=== PATIENT | male | born 1945 | race Caucasian/White ===

== ENCOUNTER 2017-03-02 18:56 | Emergency (ER) | payer MEDICARE ==
[2017-03-02] MEDS ORDERED: NS 0.9% 1000 ML* 1,000 ML IV ONE (19:44)
[2017-03-02 19:54] LABS: Hematocrit 44 % (42-52); Hemoglobin 14.8 g/dl (14.0-18.0); Mean Corpuscular HGB Conc 34 g/dl (31-36); Mean Corpuscular Hemoglobin 33 pg (27-31); Mean Corpuscular Volume 98 fL (80-94); Mean Platelet Volume 9 um3 (7.4-10.4); Red Blood Count 4.52 10^6/ul (4.0-5.4); Red Cell Distribution Width 12 % (10.5-15); White Blood Count 4.7 10^3/ul (3.5-10.8)
[2017-03-02 20:10] LABS: ALT 21 U/L (7-52); AST 22 U/L (13-39); Albumin 4.4 g/dL (3.2-5.2); Alkaline Phosphatase 88 U/L (34-104); Anion Gap 5 mmol/L (2-11); Blood Urea Nitrogen 20 mg/dL (6-24); C Reactive Protein < 1.00 mg/L (< 5.00); CO2 Carbon Dioxide 30 mmol/L (22-32); Calcium 9.1 mg/dL (8.6-10.3); Chloride 102 mmol/L (101-111); Creatine Kinase 108 U/L (10-223); EGFR African American 128.1 (>60); EGFR Non-African American 99.6 (>60); Globulin 3.2 g/dL (2-4); Glucose 80 mg/dL (70-100); Lipase 20 U/L (11.0-82.0); Magnesium 1.9 mg/dL (1.9-2.7); Potassium 3.8 mmol/L (3.5-5.0); Sodium 137 mmol/L (133-145); Total Protein 7.6 g/dL (6.4-8.9)
[2017-03-02 20:30] LABS: TSH (Thyroid Stimulating Horm) 3.14 mcIU/mL (0.34-5.60)
--- NOTE | 2017-03-02 20:31 | RAD ---
INDICATION: Palpitations. COMPARISON: Comparison is made with a prior chest x-ray study from September 02, 2016. TECHNIQUE: A portable view of the chest was obtained. FINDINGS: Cardiac and mediastinal contours appear to be within normal limits. The lungs are clear. No pleural effusion is seen. IMPRESSION: NO EVIDENCE FOR ACUTE DISEASE.
--- NOTE | 2017-03-02 21:34 | ED ---
Cole Orourke Billy, scribed for Gordo Emmanuel MD on 03/02/17 at 1940 . Palpitations / Dysrhythmia - HPI Summary HPI Summary: Patient is a 71 year-old male with a history of atrial fibrilliation coming to [facility] for evaluation of irregular heart beat at 1700 today. He states that his heart felt "irregular, but not racing." He felt fatigued during that time, but denies SOB. He took metoprolol which improved his symptoms. Patient normally takes 12.5mg metoprolol at night, 25mg during the day. He also takes Eliquis. At this time in the ED, patient states that he feels normal and asymptomatic. - History of Current Complaint Chief Complaint: EDDysrhythmPalp Time Seen by Provider: 03/02/17 19:29 Hx Obtained From: Patient Onset/Duration: Gradual Onset, Lasting Hours, Still Present Timing: Constant Severity Initially: Moderate Severity Currently: Moderate Character: Irregular Aggravating: Nothing Alleviating: Medication - Allergy/Home Medications Allergies/Adverse Reactions: Allergies Allergy/AdvReac Type Severity Reaction Status Date / Time Mepivacaine [From Carbocaine] Allergy Unknown Verified 09/02/16 09:02 Reaction Details Midazolam [From Versed] Allergy See Comment Verified 09/02/16 09:02 Penicillins Allergy Unknown Verified 09/02/16 09:02 Reaction Details PMH/Surg Hx/FS Hx/Imm Hx Endocrine/Hematology History: Denies: Hx Diabetes, Hx Thyroid Disease Cardiovascular History: Reports: Hx Atrial Fibrillation Denies: Hx Hypertension, Other Cardiovascular Problems/Disorders Respiratory History: Denies: Hx Asthma, Hx Chronic Obstructive Pulmonary Disease (COPD) GI History: Reports: Other GI Disorders - IBS Denies: Hx Ulcer Musculoskeletal History: Reports: Hx Arthritis - Surgical History Surgery Procedure, Year, and Place: WISDOM TEETH REMOVAL - Immunization History Date of Tetanus Vaccine: 2012 Date of Influenza Vaccine: None Infectious Disease History: No Infectious Disease History: Denies: Hx Hepatitis, Hx Human Immunodeficiency Virus (HIV), Traveled Outside the US in Last 30 Days - Family History Known Family History: Positive: Other - Sleep apnea - Social History Alcohol Use: None Hx Substance Use: No Substance Use Type: Reports: None Hx Tobacco Use: No Smoking Status (MU): Never Smoked Tobacco Review of Systems Positive: Fatigue Positive: Palpitations Negative: Shortness Of Breath All Other Systems Reviewed And Are Negative: Yes Physical Exam Triage Information Reviewed: Yes Vital Signs On Initial Exam: Initial Vitals Temp Pulse Resp BP Pulse Ox 97.1 F 58 18 131/43 100 03/02/17 19:09 03/02/17 19:09 03/02/17 19:09 03/02/17 19:09 03/02/17 19:09 Vital Signs Reviewed: Yes Appearance: Positive: Well-Appearing, No Pain Distress Skin: Positive: Warm, Skin Color Reflects Adequate Perfusion, Dry Head/Face: Positive: Normal Head/Face Inspection Eyes: Positive: EOMI, SONIA ENT: Positive: Normal ENT inspection Neck: Positive: Supple, Nontender Respiratory/Lung Sounds: Positive: Clear to Auscultation, Breath Sounds Present Cardiovascular: Positive: Bradycardia Abdomen Description: Positive: Nontender, Soft Musculoskeletal: Positive: Normal, Strength/ROM Intact Neurological: Positive: Normal, Sensory/Motor Intact, Alert, Oriented to Person Place, Time Psychiatric: Positive: Affect/Mood Appropriate Diagnostics - Vital Signs Vital Signs Temp Pulse Resp BP Pulse Ox 03/02/17 19:09 97.1 F 58 18 131/43 100 - Laboratory Lab Results: Lab Results 03/02/17 03/02/17 03/02/17 Range/Units 19:35 19:35 19:35 WBC 4.7 (3.5-10.8) 10^3/ul RBC 4.52 (4.0-5.4) 10^6/ul Hgb 14.8 (14.0-18.0) g/dl Hct 44 (42-52) % MCV 98 H (80-94) fL MCH 33 H (27-31) pg MCHC 34 (31-36) g/dl RDW 12 (10.5-15) % Plt Count 196 (150-450) 10^3/ul MPV 9 (7.4-10.4) um3 Neut % (Auto) 53.7 (38-83) % Lymph % (Auto) 36.4 (25-47) % Bailey % (Auto) 6.4 (1-9) % Eos % (Auto) 2.0 (0-6) % Baso % (Auto) 1.5 (0-2) % Absolute Neuts (auto) 2.6 (1.5-7.7) 10^3/ul Absolute Lymphs (auto) 1.7 (1.0-4.8) 10^3/ul Absolute Monos (auto) 0.3 (0-0.8) 10^3/ul Absolute Eos (auto) 0.1 (0-0.6) 10^3/ul Absolute Basos (auto) 0.1 (0-0.2) 10^3/ul Absolute Nucleated RBC 0 10^3/ul Nucleated RBC % 0.1 INR (Anticoag Therapy) 1.04 (0.89-1.11) APTT 32.2 (26.0-36.3) seconds Sodium 137 (133-145) mmol/L Potassium 3.8 (3.5-5.0) mmol/L Chloride 102 (101-111) mmol/L Carbon Dioxide 30 (22-32) mmol/L Anion Gap 5 (2-11) mmol/L BUN 20 (6-24) mg/dL Creatinine 0.77 (0.67-1.17) mg/dL Est GFR ( Amer) 128.1 (>60) Est GFR (Non-Af Amer) 99.6 (>60) BUN/Creatinine Ratio 26.0 H (8-20) Glucose 80 (70-100) mg/dL Lactic Acid (0.5-2.0) mmol/L Calcium 9.1 (8.6-10.3) mg/dL Magnesium 1.9 (1.9-2.7) mg/dL Total Bilirubin 0.40 (0.2-1.0) mg/dL AST 22 (13-39) U/L ALT 21 (7-52) U/L Alkaline Phosphatase 88 (34-104) U/L Total Creatine Kinase 108 (10-223) U/L CK-MB (CK-2) 4.1 (0.6-6.3) ng/mL Troponin I 0.00 (<0.04) ng/mL C-Reactive Protein < 1.00 (< 5.00) mg/L B-Natriuretic Peptide ( - 100) pg/mL Total Protein 7.6 (6.4-8.9) g/dL Albumin 4.4 (3.2-5.2) g/dL Globulin 3.2 (2-4) g/dL Albumin/Globulin Ratio 1.4 (1-3) Lipase 20 (11.0-82.0) U/L TSH 3.14 (0.34-5.60) mcIU/mL 03/02/17 03/02/17 Range/Units 19:35 19:35 WBC (3.5-10.8) 10^3/ul RBC (4.0-5.4) 10^6/ul Hgb (14.0-18.0) g/dl Hct (42-52) % MCV (80-94) fL MCH (27-31) pg MCHC (31-36) g/dl RDW (10.5-15) % Plt Count (150-450) 10^3/ul MPV (7.4-10.4) um3 Neut % (Auto) (38-83) % Lymph % (Auto) (25-47) % Bailey % (Auto) (1-9) % Eos % (Auto) (0-6) % Baso % (Auto) (0-2) % Absolute Neuts (auto) (1.5-7.7) 10^3/ul Absolute Lymphs (auto) (1.0-4.8) 10^3/ul Absolute Monos (auto) (0-0.8) 10^3/ul Absolute Eos (auto) (0-0.6) 10^3/ul Absolute Basos (auto) (0-0.2) 10^3/ul Absolute Nucleated RBC 10^3/ul Nucleated RBC % INR (Anticoag Therapy) (0.89-1.11) APTT (26.0-36.3) seconds Sodium (133-145) mmol/L Potassium (3.5-5.0) mmol/L Chloride (101-111) mmol/L Carbon Dioxide (22-32) mmol/L Anion Gap (2-11) mmol/L BUN (6-24) mg/dL Creatinine (0.67-1.17) mg/dL Est GFR ( Amer) (>60) Est GFR (Non-Af Amer) (>60) BUN/Creatinine Ratio (8-20) Glucose (70-100) mg/dL Lactic Acid 1.2 (0.5-2.0) mmol/L Calcium (8.6-10.3) mg/dL Magnesium (1.9-2.7) mg/dL Total Bilirubin (0.2-1.0) mg/dL AST (13-39) U/L ALT (7-52) U/L Alkaline Phosphatase (34-104) U/L Total Creatine Kinase (10-223) U/L CK-MB (CK-2) (0.6-6.3) ng/mL Troponin I (<0.04) ng/mL C-Reactive Protein (< 5.00) mg/L B-Natriuretic Peptide 143 H ( - 100) pg/mL Total Protein (6.4-8.9) g/dL Albumin (3.2-5.2) g/dL Globulin (2-4) g/dL Albumin/Globulin Ratio (1-3) Lipase (11.0-82.0) U/L TSH (0.34-5.60) mcIU/mL Result Diagrams: 03/02/17 19:35 03/02/17 19:35 Lab Statement: Any lab studies that have been ordered have been reviewed, and results considered in the medical decision making process. - Radiology CXR Xray Interpretation: No Acute Changes Radiology Interpretation Completed By: Radiologist - EKG 192 EKG Interpretation: sinus bradycardia 53 bpm, normal ST segment, no ectopy Course/Dx - Course Course Of Treatment: NO CRITICAL CARE TIME Assessment/Plan: WELL IN ED. NO ARRYTHMIAS SEEN. DISCUSSED RESULTS WITH PATIENT/ . DISCHARGE HOME STABLE. - Diagnoses Provider Diagnoses: Palpitation Discharge - Discharge Plan Condition: Stable Disposition: HOME Patient Education Materials: Palpitations (ED) Referrals: Ritchie Arshad MD [Primary Care Provider] - Additional Instructions: FOLLOW UP WITH YOUR TENNIS INSTRUCTOR. RETURN TO THE EMERGENCY DEPARTMENT FOR ANY WORSENING OF YOUR CONDITION; CHEST PAIN, SHORTNESS OF BREATH, YOU FEEL ILL OR QUESTIONS OR CONCERNS. The documentation as recorded by the Cole cantu Billy accurately reflects the service I personally performed and the decisions made by me, Gordo Emmanuel MD.
[2017-03-02 21:35] VITALS: BP 97/49
== END 2017-03-02 21:34 | disposition home or self-care (01) ==
LOC: ED 18:56
DX: R00.2 Palpitations (principal); I48.91 Unspecified atrial fibrillation; Z79.01 Long term (current) use of anticoagulants; Z88.0 Allergy status to penicillin; R53.83 Other fatigue
CPT/HCPCS: 36415; 71010; 80053; 82550; 82553; 83605; 83690; 83735; 83880; 84443; 84484; 85025; 85610; 85730; 86140; 93005; 96360; 99283

== ENCOUNTER 2017-04-09 00:34 | Emergency (ER) | payer MEDICARE ==
[2017-04-09 01:34] LABS: Hematocrit 40 % (42-52); Hemoglobin 13.4 g/dl (14.0-18.0); Mean Corpuscular HGB Conc 34 g/dl (31-36); Mean Corpuscular Hemoglobin 33 pg (27-31); Mean Corpuscular Volume 96 fL (80-94); Mean Platelet Volume 9 um3 (7.4-10.4); Red Cell Distribution Width 12 % (10.5-15); White Blood Count 5.3 10^3/ul (3.5-10.8)
[2017-04-09 01:45] LABS: Albumin 3.6 g/dL (3.2-5.2); Calcium 8.8 mg/dL (8.6-10.3); EGFR African American 140.7 (>60); EGFR Non-African American 109.4 (>60); Globulin 2.7 g/dL (2-4); Magnesium 1.8 mg/dL (1.9-2.7); Potassium 3.8 mmol/L (3.5-5.0); Total Bilirubin 0.3 mg/dL (0.2-1.0); Total Protein 6.3 g/dL (6.4-8.9)
[2017-04-09 01:55] LABS: TSH (Thyroid Stimulating Horm) 3.81 mcIU/mL (0.34-5.60)
--- NOTE | 2017-04-09 02:44 | ED ---
Matty Orourke Matthew, scribed for Margarito Harkins MD on 04/09/17 at 0056 . Palpitations / Dysrhythmia - HPI Summary HPI Summary: A 71 y/o male with a Hx of AFib presents to the ED with intermittent palpitations since tonight. The patient last had an episode of AFib a month ago and came to [facility] at that time. Currently, the patient is feeling fatigued. 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 - History of Current Complaint Chief Complaint: EDDysrhythmPalp Time Seen by Provider: 04/09/17 00:44 Hx Obtained From: Patient Onset/Duration: Sudden Onset, Lasting Hours, Still Present Timing: Intermittent Episodes Lasting: Severity Initially: Mild Severity Currently: Mild Character: Irregular Aggravating: Nothing Alleviating: Nothing - Allergy/Home Medications Allergies/Adverse Reactions: Allergies Allergy/AdvReac Type Severity Reaction Status Date / Time Mepivacaine [From Carbocaine] Allergy Unknown Verified 09/02/16 09:02 Reaction Details Midazolam [From Versed] Allergy See Comment Verified 09/02/16 09:02 Penicillins Allergy Unknown Verified 09/02/16 09:02 Reaction Details PMH/Surg Hx/FS Hx/Imm Hx Endocrine/Hematology History: Denies: Hx Diabetes, Hx Thyroid Disease Cardiovascular History: Reports: Hx Atrial Fibrillation Denies: Hx Hypertension, Other Cardiovascular Problems/Disorders Respiratory History: Denies: Hx Asthma, Hx Chronic Obstructive Pulmonary Disease (COPD) GI History: Reports: Other GI Disorders - IBS Denies: Hx Ulcer Musculoskeletal History: Reports: Hx Arthritis - Surgical History Surgery Procedure, Year, and Place: WISDOM TEETH REMOVAL - Immunization History Date of Tetanus Vaccine: 2012 Date of Influenza Vaccine: None Infectious Disease History: Denies: Hx Hepatitis, Hx Human Immunodeficiency Virus (HIV), Traveled Outside the [place] in Last 30 Days - Family History Known Family History: Positive: Other - Sleep apnea - Social History Alcohol Use: None Hx Substance Use: No Substance Use Type: Reports: None Hx Tobacco Use: No Smoking Status (MU): Never Smoked Tobacco Review of Systems Positive: Fatigue Eyes: Negative Positive: Epistaxis Positive: Palpitations Respiratory: Negative Gastrointestinal: Negative Genitourinary: Negative Musculoskeletal: Negative Skin: Negative Neurological: Negative Psychological: Normal All Other Systems Reviewed And Are Negative: Yes Physical Exam Triage Information Reviewed: Yes Vital Signs On Initial Exam: Initial Vitals Temp Pulse Resp BP Pulse Ox 97.7 F 95 16 146/80 100 04/09/17 00:35 04/09/17 00:35 04/09/17 00:35 04/09/17 00:35 04/09/17 00:35 Vital Signs Reviewed: Yes Appearance: Positive: Well-Appearing, No Pain Distress - anxious Skin: Positive: Skin Color Reflects Adequate Perfusion Head/Face: Positive: Normal Head/Face Inspection Eyes: Positive: SONIA ENT: Positive: Hearing grossly normal Neck: Positive: Supple Respiratory/Lung Sounds: Positive: Breath Sounds Present Cardiovascular: Positive: IRR Abdomen Description: Positive: Nontender, No Organomegaly, Soft Bowel Sounds: Positive: Present Musculoskeletal: Positive: Strength/ROM Intact Neurological: Positive: Alert, Oriented to Person Place, Time Psychiatric: Positive: Affect/Mood Appropriate Diagnostics - Vital Signs Vital Signs Temp Pulse Resp BP Pulse Ox 04/09/17 00:35 97.7 F 95 16 146/80 100 - Laboratory Lab Results: Lab Results 04/09/17 04/09/17 04/09/17 Range/Units 01:10 01:10 01:10 WBC 5.3 (3.5-10.8) 10^3/ul RBC 4.10 (4.0-5.4) 10^6/ul Hgb 13.4 L (14.0-18.0) g/dl Hct 40 L (42-52) % MCV 96 H (80-94) fL MCH 33 H (27-31) pg MCHC 34 (31-36) g/dl RDW 12 (10.5-15) % Plt Count 171 (150-450) 10^3/ul MPV 9 (7.4-10.4) um3 Neut % (Auto) 59.4 (38-83) % Lymph % (Auto) 29.5 (25-47) % [place] % (Auto) 7.5 (1-9) % Eos % (Auto) 2.8 (0-6) % Baso % (Auto) 0.8 (0-2) % Absolute Neuts (auto) 3.2 (1.5-7.7) 10^3/ul Absolute Lymphs (auto) 1.6 (1.0-4.8) 10^3/ul Absolute Monos (auto) 0.4 (0-0.8) 10^3/ul Absolute Eos (auto) 0.1 (0-0.6) 10^3/ul Absolute Basos (auto) 0 (0-0.2) 10^3/ul Absolute Nucleated RBC 0 10^3/ul Nucleated RBC % 0.1 INR (Anticoag Therapy) 1.10 (0.89-1.11) Sodium 138 (133-145) mmol/L Potassium 3.8 (3.5-5.0) mmol/L Chloride 107 (101-111) mmol/L Carbon Dioxide 29 (22-32) mmol/L Anion Gap 2 (2-11) mmol/L BUN 27 H (6-24) mg/dL Creatinine 0.71 (0.67-1.17) mg/dL Est GFR ( Amer) 140.7 (>60) Est GFR (Non-Af Amer) 109.4 (>60) BUN/Creatinine Ratio 38.0 H (8-20) Glucose 82 (70-100) mg/dL Lactic Acid (0.5-2.0) mmol/L Calcium 8.8 (8.6-10.3) mg/dL Magnesium 1.8 L (1.9-2.7) mg/dL Total Bilirubin 0.30 (0.2-1.0) mg/dL AST 18 (13-39) U/L ALT 20 (7-52) U/L Alkaline Phosphatase 85 (34-104) U/L Troponin I 0.00 (<0.04) ng/mL Total Protein 6.3 L (6.4-8.9) g/dL Albumin 3.6 (3.2-5.2) g/dL Globulin 2.7 (2-4) g/dL Albumin/Globulin Ratio 1.3 (1-3) TSH 3.81 (0.34-5.60) mcIU/mL 04/09/17 Range/Units 01:10 WBC (3.5-10.8) 10^3/ul RBC (4.0-5.4) 10^6/ul Hgb (14.0-18.0) g/dl Hct (42-52) % MCV (80-94) fL MCH (27-31) pg MCHC (31-36) g/dl RDW (10.5-15) % Plt Count (150-450) 10^3/ul MPV (7.4-10.4) um3 Neut % (Auto) (38-83) % Lymph % (Auto) (25-47) % [place] % (Auto) (1-9) % Eos % (Auto) (0-6) % Baso % (Auto) (0-2) % Absolute Neuts (auto) (1.5-7.7) 10^3/ul Absolute Lymphs (auto) (1.0-4.8) 10^3/ul Absolute Monos (auto) (0-0.8) 10^3/ul Absolute Eos (auto) (0-0.6) 10^3/ul Absolute Basos (auto) (0-0.2) 10^3/ul Absolute Nucleated RBC 10^3/ul Nucleated RBC % INR (Anticoag Therapy) (0.89-1.11) Sodium (133-145) mmol/L Potassium (3.5-5.0) mmol/L Chloride (101-111) mmol/L Carbon Dioxide (22-32) mmol/L Anion Gap (2-11) mmol/L BUN (6-24) mg/dL Creatinine (0.67-1.17) mg/dL Est GFR ( Amer) (>60) Est GFR (Non-Af Amer) (>60) BUN/Creatinine Ratio (8-20) Glucose (70-100) mg/dL Lactic Acid 1.2 (0.5-2.0) mmol/L Calcium (8.6-10.3) mg/dL Magnesium (1.9-2.7) mg/dL Total Bilirubin (0.2-1.0) mg/dL AST (13-39) U/L ALT (7-52) U/L Alkaline Phosphatase (34-104) U/L Troponin I (<0.04) ng/mL Total Protein (6.4-8.9) g/dL Albumin (3.2-5.2) g/dL Globulin (2-4) g/dL Albumin/Globulin Ratio (1-3) TSH (0.34-5.60) mcIU/mL Result Diagrams: 04/09/17 01:10 04/09/17 01:10 Lab Statement: Any lab studies that have been ordered have been reviewed, and results considered in the medical decision making process. - EKG 00:41 Cardiac Rate: NL - 92 bpm EKG Rhythm: Atrial Fibrillation 02:47 Cardiac Rate: Bradycardia - 50 bpm EKG Rhythm: Sinus Bradycardia Re-Evaluation - Re-Evaluation First Eval Comment: pt spontaneously cinverted to nsr, on anticoagulants, will d/c f/u pcp Course/Dx - Course Assessment/Plan: A 71 y/o male with a Hx of AFib presents to the ED with intermittent palpitations since tonight. The patient last had an episode of AFib a month ago and came to [facility] at that time. Currently, the patient is feeling fatigued. He sees Dr. Verma. Labs were reviewed. The first EKG showed Afib at 92bpm and the second EKG shows sinus bradycardia at 50 bpm. The patient did well in the ED and will be discharged home with PCP follow-up. - Diagnoses Provider Diagnoses: Paroxysmal atrial fibrillation Discharge - Discharge Plan Condition: Stable Disposition: HOME Patient Education Materials: Palpitations (ED) Referrals: Ritchie Arhsad MD [Primary Care Provider] - 2 Days Additional Instructions: Please follow-up with your primary care physician in 2 days. The documentation as recorded by the Matty cantu Matthew accurately reflects the service I personally performed and the decisions made by me, Margarito Harkins MD.
[2017-04-09 03:09] VITALS: BP 94/56
== END 2017-04-09 03:10 | disposition home or self-care (01) ==
LOC: ED 00:34
DX: I48.91 Unspecified atrial fibrillation (principal); Z88.0 Allergy status to penicillin
CPT/HCPCS: 36415; 80053; 83605; 83735; 84443; 84484; 85025; 85610; 93005; 99282

== ENCOUNTER 2017-06-02 12:02 | Emergency (ER) | payer MEDICARE ==
[2017-06-02] MEDS ORDERED: Aspirin Low Dose CHEW TAB* 81 MG PO ONE (12:29)
--- NOTE | 2017-06-02 12:58 | RAD ---
INDICATION: Weakness COMPARISON: March 02, 2017 TECHNIQUE: An AP portable view obtained at 1242 hours is submitted. FINDINGS: Bones/Soft Tissues: There are no acute bony findings. Cardiomediastinal: The cardiomediastinal silhouette is normal. Lungs: There are no infiltrates. Pleura: There are no pleural effusions. Other: None IMPRESSION: HYPERINFLATION. NO ACTIVE DISEASE
[2017-06-02 13:07] LABS: Hematocrit 40 % (42-52); Hemoglobin 13.6 g/dl (14.0-18.0); Mean Corpuscular HGB Conc 34 g/dl (31-36); Mean Corpuscular Hemoglobin 34 pg (27-31); Mean Corpuscular Volume 100 fL (80-94); Mean Platelet Volume 9 um3 (7.4-10.4); Red Blood Count 4.04 10^6/ul (4.0-5.4); Red Cell Distribution Width 13 % (10.5-15); White Blood Count 4.2 10^3/ul (3.5-10.8)
[2017-06-02 13:23] LABS: Albumin 3.8 g/dL (3.2-5.2); BUN/Creatinine Ratio 24.7 (8-20); Calcium 8.7 mg/dL (8.6-10.3); EGFR African American 120.8 (>60); EGFR Non-African American 93.9 (>60); Potassium 4.1 mmol/L (3.5-5.0); Total Bilirubin 0.5 mg/dL (0.2-1.0); Total Protein 6.8 g/dL (6.4-8.9)
[2017-06-02] MEDS ORDERED: NS 0.9% 1000 ML* 1,000 ML IV ONE (13:27)
[2017-06-02 13:45] LABS: T4 7.34 mcg/mL (6.09-12.23)
[2017-06-02 13:46] LABS: TSH (Thyroid Stimulating Horm) 1.54 mcIU/mL (0.34-5.60)
[2017-06-02 13:50] LABS: C Reactive Protein 2.21 mg/L (< 5.00)
[2017-06-02 15:05] VITALS: BP 102/59
--- NOTE | 2017-06-02 15:07 | ED ---
Justin Orourke Alfonso, scribed for Pawan Reinoso MD on 06/02/17 at 1322 . Shortness of Breath - HPI Summary HPI Summary: This patient is a 71 year old male presenting to [facility] for SOB at 0500 this morning. These symptoms lasted for approximately 2 hours. He reports "I dont know how to characterize it but this feels a little different from baseline. He rates the pain the pain 0/10 in severity. Symptoms aggravated by exertion and alleviated by nothing. He reports weakness, being tired, belching, abd pain , and arthralgia. He denies CP, chest discomfort, palpations, fever, chills, diaphoresis, N/V, diarrhea, melena, cough, rash, urinary symptoms, headaches, and dizziness. He denies recent illness. He denies recent changes in doses of medication. Pt states he is taking Eliquis. Pt is a former smoker. He denies PMHx of diabetes mellitus, and HTN. PMHx of A-Fib. - History of Current Complaint Chief Complaint: EDChestPainROMI Time Seen by Provider: 06/02/17 12:29 Hx Obtained From: Patient, Family/Machine Bander And Cellophaner Helper - Onset/Duration: Sudden Onset, Lasting Hours - 2 hours, Resolved Timing: Constant Current Severity: Mild Aggrevating Factors: Movement - Exertion Alleviating Factors: Nothing - Allergy/Home Medications Allergies/Adverse Reactions: Allergies Allergy/AdvReac Type Severity Reaction Status Date / Time Mepivacaine [From Carbocaine] Allergy Unknown Verified 09/02/16 09:02 Reaction Details Midazolam [From Versed] Allergy See Comment Verified 09/02/16 09:02 Penicillins Allergy Unknown Verified 09/02/16 09:02 Reaction Details PMH/Surg Hx/FS Hx/Imm Hx Endocrine/Hematology History: Denies: Hx Diabetes, Hx Thyroid Disease Cardiovascular History: Reports: Hx Atrial Fibrillation Denies: Hx Hypertension, Other Cardiovascular Problems/Disorders Respiratory History: Denies: Hx Asthma, Hx Chronic Obstructive Pulmonary Disease (COPD) GI History: Reports: Other GI Disorders - IBS Denies: Hx Ulcer Musculoskeletal History: Reports: Hx Arthritis - Surgical History Surgery Procedure, Year, and Place: WISDOM TEETH REMOVAL - Immunization History Date of Tetanus Vaccine: 2012 Date of Influenza Vaccine: None Infectious Disease History: No Infectious Disease History: Denies: Hx Hepatitis, Hx Human Immunodeficiency Virus (HIV), Traveled Outside the [place] in Last 30 Days - Family History Known Family History: Positive: Other - Sleep apnea - Social History Alcohol Use: Rare Hx Substance Use: No Substance Use Type: Reports: None Hx Tobacco Use: No Smoking Status (MU): Former Smoker Review of Systems Negative: Fever, Chills, Skin Diaphoresis Positive: Other - Negative chest discomfort. Negative: Palpitations, Chest Pain Positive: Shortness Of Breath. Negative: Cough Positive: Abdominal Pain, Other - Positive belching; negative melena, . Negative: Vomiting, Diarrhea, Nausea Positive: no symptoms reported Positive: Arthralgia Negative: Rash Neurological: Other - Positive tired, negative dizziness Positive: Weakness. Negative: Headache All Other Systems Reviewed And Are Negative: Yes Physical Exam - Summary Physical Exam Summary: The patient is well-nourished in no acute distress and in no acute pain. The skin is warm and dry and skin color reflects adequate perfusion. HEENT: The head is normocephalic and atraumatic. The pupils are equal and reactive. The conjunctivae are clear and without drainage. Nares are patent and without drainage. Mouth reveals moist mucous membranes and the throat is without erythema and exudate. The external ears are intact. Neck is supple with full range of motion and non-tender. There are no carotid bruits. There is no neck vein distension. Respiratory: Chest is non-tender. Lungs are clear to auscultation and breath sounds are symmetrical and equal. Cardiovascular: Heart is bradycardic. There is no murmur or rub auscultated. There is no peripheral edema and pulses are symmetrical and equal. No carotid bruit appreciated. Abdomen: The abdomen is soft and non-tender. There are normal bowel sounds heard in all four quadrants and there is no organomegaly palpated. No reproducible pain. Musculoskeletal: There is no back pain noted. Extremities are non-tender with full range of motion. There is good capillary refill. There is no peripheral edema or calf tenderness elicited. Neurological: Patient is alert and oriented to person, place and time. The patient has symmetrical motor strength in all four extremities. Cranial nerves are grossly intact. Deep tendon reflexes are symmetrical and equal in all four extremities. Psychiatric: The patient has a flat affect and does not exhibit any anxiety or depression. Triage Information Reviewed: Yes Vital Signs On Initial Exam: Initial Vitals Temp Pulse Resp BP Pulse Ox 97.8 F 47 16 112/68 100 06/02/17 12:03 06/02/17 12:03 06/02/17 12:03 06/02/17 12:03 06/02/17 12:03 Vital Signs Reviewed: Yes - Lino Coma Scale Coma Scale Total: 15 Diagnostics - Vital Signs Vital Signs Temp Pulse Resp BP Pulse Ox 06/02/17 13:00 48 12 106/56 100 06/02/17 12:50 48 97 06/02/17 12:48 109/65 06/02/17 12:03 97.8 F 47 16 112/68 100 - Laboratory Lab Results: Lab Results 06/02/17 06/02/17 Range/Units 12:55 12:55 WBC 4.2 (3.5-10.8) 10^3/ul RBC 4.04 (4.0-5.4) 10^6/ul Hgb 13.6 L (14.0-18.0) g/dl Hct 40 L (42-52) % MCV 100 H (80-94) fL MCH 34 H (27-31) pg MCHC 34 (31-36) g/dl RDW 13 (10.5-15) % Plt Count 175 (150-450) 10^3/ul MPV 9 (7.4-10.4) um3 Neut % (Auto) 65.4 (38-83) % Lymph % (Auto) 22.7 L (25-47) % [place] % (Auto) 9.6 H (1-9) % Eos % (Auto) 1.5 (0-6) % Baso % (Auto) 0.8 (0-2) % Absolute Neuts (auto) 2.7 (1.5-7.7) 10^3/ul Absolute Lymphs (auto) 1.0 (1.0-4.8) 10^3/ul Absolute Monos (auto) 0.4 (0-0.8) 10^3/ul Absolute Eos (auto) 0.1 (0-0.6) 10^3/ul Absolute Basos (auto) 0 (0-0.2) 10^3/ul Absolute Nucleated RBC 0 10^3/ul Nucleated RBC % 0.1 Lactic Acid 0.9 (0.5-2.0) mmol/L Result Diagrams: 06/02/17 12:55 06/02/17 12:55 Lab Statement: Any lab studies that have been ordered have been reviewed, and results considered in the medical decision making process. - Radiology CXR Radiology Interpretation Completed By: Radiologist - HYPERINFLATION. NO ACTIVE DISEASE - EKG 1222 Cardiac Rate: Bradycardia - BPM 47 EKG Rhythm: Sinus Bradycardia EKG Interpretation: Poor R wave progression. Nml axis. Possible old anteroseptal CA. No STEMI Re-Evaluation - Re-Evaluation Second Eval Re-Evaluation Time: 14:50 Comment: Discussed lab results with patient. Discussed discharge and they are agreeable with this plan. Course/Dx - Course Assessment/Plan: A 71 year-old M presents to the ED with a CC of SOB at 0500. He reports weakness, being tired, belching, abd pain, and arthralgia. He denies CP, chest discomfort, palpations, fever, chills, diaphoresis, N/V, diarrhea, melena, cough, rash, urinary symptoms, headaches, and dizziness. A CXR reveals no active disease. An EKG reveals Sinus Bradycardia. A Lyme titer was drawn. Patient will be discharged with follow up from Dr. Arshad. Pt is agreeable with this plan. - Diagnoses Differential Diagnosis/HQI/PQRI: Positive: CHF, CA, Pneumonia, Other - dehydration, anemia, lyme's disease, chest pain, metabolic abnormality, cardiac dysrhythmia Provider Diagnoses: weakness, Bradycardia Discharge - Discharge Plan Condition: Stable Disposition: HOME Patient Education Materials: Weakness (ED), Bradycardia (ED) Referrals: Ritchie Arshad MD [Primary Care Provider] - 1 Week The documentation as recorded by the Justin cantu Alfonso accurately reflects the service I personally performed and the decisions made by , Pawan Reinoso MD.
== END 2017-06-02 15:15 | disposition home or self-care (01) ==
LOC: ED 12:02
DX: R53.1 Weakness (principal); R00.1 Bradycardia, unspecified; I48.91 Unspecified atrial fibrillation; Z87.891 Personal history of nicotine dependence; Z88.0 Allergy status to penicillin
CPT/HCPCS: 36415; 71010; 80053; 82150; 83605; 83690; 83880; 84436; 84443; 84484; 85025; 85610; 85730; 86140; 86618; 93005; 99283; A9270-GY

== ENCOUNTER 2019-03-03 19:38 | Emergency (ER) | payer MEDICARE ==
[2019-03-03] MEDS ORDERED: NS 0.9% 1000 ML** 1,000 ML IV ONE (20:07)
--- NOTE | 2019-03-03 20:10 | ED ---
Palpitations / Dysrhythmia - HPI Summary HPI Summary: This patient is a 73 year old M presenting to ED with a chief complaint of irregular HR since about 1-1.5 hour ago. Patient was sitting during onset. The patient rates the pain 0/10 in severity. Symptoms aggravated by nothing. Symptoms alleviated by nothing. Patient denies CP. He has had 3-4 similar episodes to this about 1 year ago. Patient is on blood thinners and took Atenolol 25 mg PO earlier today. 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 Doesnt remember when his last echo was. - History of Current Complaint Chief Complaint: EDDysrhythmPalp Time Seen by Provider: 03/03/19 19:52 Hx Obtained From: Patient, Family/Bobbin Handler Onset/Duration: Sudden Onset, Lasting Hours, Still Present Timing: Constant Severity Currently: None Character: Irregular Aggravating: Nothing Alleviating: Nothing - Allergy/Home Medications Allergies/Adverse Reactions: Allergies Allergy/AdvReac Type Severity Reaction Status Date / Time MS Mepivacaine Allergy Unknown Verified 03/03/19 19:47 [From Carbocaine] Reaction Details MS Midazolam [From Versed] Allergy See Comment Verified 03/03/19 19:47 MS Penicillins [Penicillins] Allergy Unknown Verified 03/03/19 19:47 Reaction Details PMH/Surg Hx/FS Hx/Imm Hx Endocrine/Hematology History: Denies: Hx Diabetes, Hx Thyroid Disease Cardiovascular History: Reports: Hx Atrial Fibrillation Denies: Hx Hypertension, Other Cardiovascular Problems/Disorders Respiratory History: Denies: Hx Asthma, Hx Chronic Obstructive Pulmonary Disease (COPD) GI History: Reports: Other GI Disorders - IBS Denies: Hx Ulcer Musculoskeletal History: Reports: Hx Arthritis - Surgical History Surgery Procedure, Year, and Place: WISDOM TEETH REMOVAL - Immunization History Date of Tetanus Vaccine: 2012 Date of Influenza Vaccine: None Infectious Disease History: No Infectious Disease History: Denies: Hx Hepatitis, Hx Human Immunodeficiency Virus (HIV), Traveled Outside the [place] in Last 30 Days - Family History Known Family History: Positive: Other - Sleep apnea - Social History Alcohol Use: Rare Hx Substance Use: No Substance Use Type: Reports: None Hx Tobacco Use: No Smoking Status (MU): Former Smoker Review of Systems Negative: Fever Positive: Palpitations - irregular. Negative: Chest Pain All Other Systems Reviewed And Are Negative: Yes Physical Exam - Summary Physical Exam Summary: VITAL SIGNS: Reviewed. GENERAL: Patient is a well-developed and nourished MALE who is lying comfortable in the stretcher. Patient is not in any acute respiratory distress. HEAD AND FACE: No signs of trauma. No ecchymosis, hematomas or skull depressions. No sinus tenderness. EYES: PERRLA, EOMI x 2, No injected conjunctiva, no nystagmus. EARS: Hearing grossly intact. Ear canals and tympanic membranes are within normal limits. MOUTH: Oropharynx within normal limits. NECK: Supple, trachea is midline, no adenopathy, no JVD, no carotid bruit, no c- spine tenderness, neck with full ROM. CHEST: Symmetric, no tenderness at palpation LUNGS: Clear to auscultation bilaterally. No wheezing or crackles. CVS: Regular rate and irregular rhythm, S1 and S2 present, no murmurs or gallops appreciated. ABDOMEN: Soft, non-tender. No signs of distention. No rebound no guarding, and no masses palpated. Bowel sounds are normal. EXTREMITIES: FROM in all major joints, no edema, no cyanosis or clubbing. NEURO: Alert and oriented x 3. No acute neurological deficits. Speech is normal and follows commands. SKIN: Dry and warm Triage Information Reviewed: Yes Vital Signs On Initial Exam: Initial Vitals Temp Pulse Resp BP Pulse Ox 97.4 F 82 16 135/72 98 03/03/19 19:40 03/03/19 19:40 03/03/19 19:40 03/03/19 19:40 03/03/19 19:40 Vital Signs Reviewed: Yes Procedures - Procedure Summary Procedure Summary: Moderate sedation: Consent was given from the patient. Patient was given Versed 2.5mg and Fentanyl 50 g. Moderate sedation was accomplished. There were no complications. Vital signs were stable throughout the procedure. No reversal agent was used. Time spent was 15 minutes. Cardioversion: Consent was given from the patient. Moderate sedation was done. The patient was cardioverted using synchronized current of 50 joules. Only 1 attempt was done. No complications. Diagnostics - Vital Signs Vital Signs Temp Pulse Resp BP Pulse Ox 03/03/19 19:40 97.4 F 82 16 135/72 98 - Laboratory Result Diagrams: 03/03/19 20:56 03/03/19 20:56 Lab Statement: Any lab studies that have been ordered have been reviewed, and results considered in the medical decision making process. - EKG 1956 Cardiac Rate: Other Rate - afib at 97 BPM EKG Rhythm: Atrial Fibrillation Summary of EKG Findings: normal axis and no ischemic changes 2150 Cardiac Rate: Bradycardia - 43 BPM EKG Rhythm: Sinus Bradycardia Summary of EKG Findings: Normal axis. Normal interval. No ischemic changes. Re-Evaluation - Re-Evaluation First Eval Re-Evaluation Time: 21:45 Comment: Moderate sedation and cardioversion was done. See Procedure note. Second Eval Re-Evaluation Time: 22:20 Change: Improved Course/Dx - Course Assessment/Plan: This patient is a 73 year old M presenting to ED with a chief complaint of irregular HR since about 1-1.5 hour ago. The patient is on eliquis and is taking it as hes supposed to. The patient definitely knows that his sx started 1.5 hours ago. EKG done at 1956 reveals afib at 97 BPM, normal axis, and no ischemic changes. Moderate sedation and cardioversion was done. See procedure note. EKG done at 2150 reveals sinus bradycardia at 43 BPM, normal axis, normal interval, and no ischemic changes. This patient will be discharged with dx of Paroxysmal afib. Patient understands and agrees with this plan. - Diagnoses Differential Diagnosis/HQI/PQRI: Positive: Other - Paroxysmal afib Provider Diagnoses: Paroxysmal A-fib Discharge - Sign-Out/Discharge Documenting (check all that apply): Patient Departure - discharge Patient Received Moderate/Deep Sedation with Procedure: Yes - Discharge Plan Condition: Stable Disposition: HOME Patient Education Materials: Moderate Sedation (ED), A-fib (Atrial Fibrillation ) (ED) Referrals: Rogelio Barrera MD [Medical Doctor] - (Follow up in 1-2 days.) Additional Instructions: Hold off on Atenolol for 24 hours. Then, talk a half tablet daily and follow up with Dr. Barrera (concrete stone finisher) in 1-2 days. PLEASE RETURN TO THE ED TO IMMEDIATELY FOR WORSENING OR CONCERNING SYMPTOMS. - Attestation Statements Document Initiated by Scribe: Yes Documenting Scribe: Leonard Bob Provider For Whom Scribe is Documenting (Include Credential): Bassam Shirley MD Scribe Attestation: ILeonard, scribed for Bassam Shirely MD on 03/03/19 at 5016. Status of Scribe Document: Ready
[2019-03-03 21:07] LABS: ABS Basophils 0.1 10^3/ul (0-0.2); ABS Eosinophils 0.1 10^3/ul (0-0.6); ABS Lymphocytes 1.4 10^3/ul (1.0-4.8); ABS Monocytes 0.3 10^3/ul (0-0.8); ABS Neutrophils 2.1 10^3/ul (1.5-7.7); ABS Nucleated RBC 0 10^3/ul; Eosinophil % 3.1 %; Hematocrit 38 % (36-46); Hemoglobin 13.1 g/dL (14.0-18.0); Lymphocyte % 36.1 %; Mean Corpuscular HGB Conc 34 g/dL (31-36); Mean Corpuscular Hemoglobin 34 pg (27-31); Mean Corpuscular Volume 98 fL (80-94); Mean Platelet Volume 8.4 fL (7.4-10.4); Nucleated Red Blood Cells % 0.1; Platelet Count 183 10^3/uL (150-450); Red Blood Count 3.91 10^6 /uL (4.18-5.48); Red Cell Distribution Width 13 % (10.5-15)
[2019-03-03 21:18] LABS: Activated Partial Thrombo Time 34.9 seconds (26.0-36.3); INR 1.11 (0.77-1.02)
[2019-03-03 21:23] LABS: Albumin 3.7 g/dL (3.2-5.2); Albumin/Globulin Ratio 1.5 (1-3); BUN/Creatinine Ratio 29.2 (8-20); Calcium 8.6 mg/dL (8.6-10.3); EGFR African American 129.5 (>60); Globulin 2.5 g/dL (2-4); Potassium 3.8 mmol/L (3.5-5.0); Total Bilirubin 0.3 mg/dL (0.2-1.0); Total Protein 6.2 g/dL (6.4-8.9)
[2019-03-03] MEDS ORDERED: fentaNYL* 50 MCG/ML 2 ML VIAL (100 MCG VIAL) ONE (21:41)
[2019-03-03] MEDS ORDERED: Midazolam* 1 MG/ML 5 ML VIAL (5 MG) ONE (21:41)
[2019-03-03 22:23] LABS: TSH (Thyroid Stimulating Horm) 2.49 mcIU/mL (0.34-5.60)
[2019-03-03 23:17] VITALS: BP 101/61
== END 2019-03-03 23:16 | disposition home or self-care (01) ==
LOC: ED 19:38
DX: I48.0 Paroxysmal atrial fibrillation (principal); R00.2 Palpitations; Z87.891 Personal history of nicotine dependence; Z88.0 Allergy status to penicillin
CPT/HCPCS: 36415; 80053; 83735; 84443; 84484; 85025; 85610; 85730; 92960; 93005; 96361; 96374; 96375; 99285; J2250; J3010

== ENCOUNTER 2019-11-07 16:40 | Emergency (ER) | payer MEDICARE ==
--- OUTSIDE RECORDS SUMMARY | 2019-11-07 16:51 | XMS REPORT | Summary of Care ---
:1945 Author Organization [facility] Address [address] [place] [address] Care Team Providers Name Role Phone Ritchie Arshad Primary Care Provider Julissa De La Torre Substance Abuse Nurse Unavailable Reason for Referral Refer to Department Only (Routine) Status Reason Specialty Diagnoses / Referred By Referred To Procedures Contact Contact Authorized UROLOGY / Urology Diagnoses Urinary frequency Encounter for screening for malignant neoplasm of prostate Romero Silva MD [address] [place] [address] Scheduling Instructions Please indicate below in the Questions section the side affected in the diagnosis. To assist the urology dept. in serving your pt please see the Investigation List needs detailed below: (click magnifying glass on left corner of this box to enlarge for ease of reviewing list) All imagining studies done outside [facility] need to be sent to urology 1 week prior to patient being seen. Hematuria: Microscopic: 2 documented positive urine analysis for RBCs Renal CT with & Without IV contrast Urine cytology Gross: Renal CT with & Without IV contrast Urine cytology Elevated PSA: Most recent PSA results PSA History if available Benign Prostatic Hyperplasia (BPH): Instruct the patient to come with full bladder - for Uroflowmetry and post voiding residual measurement testing at urology appt. Renal stone disease: Renal CT without IV contrast Renal Mass or complex cyst on Ultrasound: Renal CT with & Without IV contrast Scrotal pain or mass: Scrotal ultrasound Erectile Dysfunction: Lipid profile Hemoglobin A1c Recurrent Urinary tract infection: Most recent culture results Urine analysis Children with UTI or Pylenephritis: Most recent culture results Renal Ultrasound MRI/CAT/PET Scan (Routine) Status Reason Specialty Diagnoses / Referred By Referred To Procedures Contact Contact Authorized Diagnoses Generalized abdominal pain Romero Silva MD Procedures US ABDOMEN LIMITED [address] [place] [address] Reason for Visit Reason Comments Follow Up f/u right groin pain Encounter Details Date Type Department Care Team Description 10/16/2019 Office Visit [facility] Romero Silva MD Inguinodynia, right (Primary Dx); Surgery 1 ABBY PATEL Urinary frequency; [address] [place] [address] Encounter for screening for malignant neoplasm of prostate ; [place] [address] Generalized abdominal pain [phone] Allergies Active Allergy Reactions Severity Noted Date Comments Carbocaine Other 12/14/2015 Passed out at Dentist after receiving med. Penicillins GI Reaction 06/16/2014 Midazolam Hcl Other 06/16/2014 Lowered bp for 4 days documented as of this encounter (statuses as of 10/16/2019) Medications Medication Sig Dispensed Refills Start Date End Date Status MAGNESIUM PO Take 250 mg by 0 Active mouth DAILY. latanoprost (XALATAN) PLACE ONE DROP 2 08/06/2018 Active 0.005 % Ophthalmic INTO BOTH EYES IN Solution THE EVENING RESTASIS MULTIDOSE PLACE ONE DROP 2 10/16/2018 Active 0.05 % Ophthalmic INTO THE RIGHT EYE Emulsion TWO TIMES A DAY FLUTICASONE FUROATE NA [place] in nose. 0 Active apixaban (ELIQUIS) 5 Take 1 Tab by 60 Tab 4 01/15/2019 Active MG Oral Tab mouth TWICE DAILY. Melatonin 3 MG Oral Take 3 mg by mouth 0 Active Tab DAILY. albuterol-ipratropium 3 mg by 0 Active (DUO-NEB) 0.5-2.5 (3) Inhalation-SVN MG/3ML Inhalation route EVERY Solution BEDTIME. documented as of this encounter (statuses as of 10/16/2019) Active Problems Problem Noted Date Right inguinal hernia 04/18/2018 Overview: Added automatically from request for surgery [id number] MIESHA on CPAP 01/25/2017 Paroxysmal atrial fibrillation 10/05/2015 Overview: [facility] [place] emergency room September 2015 Echocardiogram left ventricular ejection fraction 55% 09/15 Displacement of intervertebral disc, site unspecified, without myelopathy documented as of this encounter (statuses as of 10/16/2019) Resolved Problems Problem Noted Date Resolved Date Rheumatoid arthritis(714.0) 06/16/2014 06/17/2014 documented as of this encounter (statuses as of 10/16/2019) Immunizations Name Administration Dates Next Due Influenza Vaccine High Dose 10/05/2015 PNEUMOCOCCAL POLYSACCHARIDE VACCINE 07/02/2014 TDAP Vaccine 12/18/2012, 05/09/2000 documented as of this encounter Social History Tobacco Use Types Packs/Day Years Used Date Former Smoker Cigarettes Quit: 1978 Smokeless Tobacco: Never Used Alcohol Use Drinks/Week oz/Week Comments No 0 Standard drinks or equivalent 0.0 Sex Assigned at Date Recorded Not on file Job Start Date Occupation Industry Not on file Not on file Not on file Travel History Travel Start Travel End No recent travel history available. documented as of this encounter Last Filed Vital Signs Vital Sign Reading Time Taken Comments Blood Pressure - - Pulse 55 10/16/2019 10:04 AM EST Temperature - - Respiratory Rate 16 10/16/2019 10:04 AM EST Oxygen Saturation 98% 10/16/2019 10:04 AM EST Inhaled Oxygen Concentration - - Weight 54.9 kg (121 lb) 10/16/2019 10:04 AM EST Height 167.6 cm (5' 6") 10/16/2019 10:04 AM EST Body Mass Index 19.53 10/16/2019 10:04 AM EST documented in this encounter Progress Notes Romero Silva MD - 10/16/2019 10:00 AM EST Groin Pain Office Visit PATIENT: Syed Chandra : 1945 DATE OF SERVICE: 09/21/2019 Romero Silva MD [address] [address] Ritchie Arshad Chief Complaint Patient presents with Follow Up f/u right groin pain HISTORY OF PRESENT ILLNESS: 10/16/19 Mr. Chandra is here for his groin pain. He is by himself today and unable to discuss symptoms fully. He states he did not take ibuprofen and the pain is intermittent. He reports issues with urinary frequency and dribbling after urination. He has not previously seen a urologist. 09/21/19 Patient presents to the office with a complaint of Right groin pain of 2 months duration. He denies a bulge. Denies signs or symptoms of obstruction. It was initially noticed after the summer and possibly a game of tennis. The pain is moderate, localized, intermittent and worse with certain movements. A comprehensive review of systems was negative except for: Musculoskeletal: positive for back pain Neurological: positive for memory problems Past Medical History: Diagnosis Date Anticoagulated by anticoagulation treatment Atrial fibrillation (HCC) Heart disease A-fib Hernia of abdominal cavity Sleep apnea on cpap Past Surgical History: Procedure Laterality Date COLONOSCOPY N/A 02/28/2018 Procedure: COLONOSCOPY; Surgeon: Dario Rebollar MD FAC; Location: [facility] MAIN OR HERNIORRHAPHY, INGUINAL ADULT Right 06/05/2018 Procedure: HERNIORRHAPHY, INGUINAL ADULT RIGHT WITH MESH AND EXCISION OF CORD LIPOMA; Surgeon: Romero Silva MD; Location: [facility] MAIN OR Social History Socioeconomic History Marital status: Spouse name: Not on file Number of children: Not on file Years of education: Not on file Highest education level: Not on file Occupational History Not on file Social Needs Financial resource strain: Not on file Food insecurity: Worry: Not on file Inability: Not on file Transportation needs: Medical: Not on file Non-medical: Not on file Tobacco Use Smoking status: Former Smoker Types: Cigarettes Last attempt to quit: 1979 Years since quittin.8 Smokeless tobacco: Never Used Substance and Sexual Activity Alcohol use: No Alcohol/week: 0.0 standard drinks Drug use: No Sexual activity: Yes Partners: Female Lifestyle Physical activity: Days per week: Not on file Minutes per session: Not on file Stress: Not on file Relationships Social connections: Talks on phone: Not on file Gets together: Not on file Attends zoroastrianism service: Not on file Active member of club or organization: Not on file Attends meetings of clubs or organizations: Not on file Relationship status: Not on file Intimate partner violence: Fear of current or ex partner: Not on file Emotionally abused: Not on file Physically abused: Not on file Forced sexual activity: Not on file Other Topics Concern Back Care Not Asked Bike Helmet Not Asked Blood Transfusions Not Asked Caffeine Concern Not Asked Exercise Yes Comment: one hour daily workouts leg lifts and walks daily Hobby Hazards Not Asked International Travel Not Asked Service Not Asked Occupational Exposure Not Asked Seat Belt Not Asked Self-Exams Not Asked Sleep Concern Not Asked Special Diet No Stress Concern Not Asked Weight Concern No Social History Narrative 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 Outpatient Medications as of 09/21/2019 Medication Sig Dispense Refill apixaban (ELIQUIS) 5 MG Oral Tab Take 1 Tab by mouth TWICE DAILY. 60 Tab 4 FLUTICASONE FUROATE NA [place] in nose. latanoprost (XALATAN) 0.005 % Ophthalmic Solution PLACE ONE DROP INTO BOTH EYES IN THE EVENING 2 MAGNESIUM PO Take 250 mg by mouth DAILY. Melatonin 3 MG Oral Tab Take 3 mg by mouth DAILY. RESTASIS MULTIDOSE 0.05 % Ophthalmic Emulsion PLACE ONE DROP INTO THE RIGHT EYE TWO TIMES A DAY 2 No current facility-administered medications on file as of 09/21/2019. Allergies Allergen Reactions Carbocaine Other Passed out at Dentist after receiving med. Penicillins GI Reaction Versed [Midazolam Hcl] Other Lowered bp for 4 days PHYSICAL EXAMINATION: Pulse 55 | Resp 16 | Ht 5' 6" (1.676 m) | Wt 121 lb (54.9 kg) | SpO2 98% | BMI 19.53 kg/m GENERAL: VS reviewed; no acute distress. SKIN: normal, no rashes or abnormalities noted. HEENT: normocephalic, atraumatic,sclera normal, anicteric, mucous membrane moist NECK: no mass, trachea midline ENDOCRINE: no thyromegaly. RESPIRATORY: nonlabored breathing, no respiratory distress; no clubbing, cyanosis, or edema. GI: Soft, nontender to deep palpation, nondistended. NEUROLOGICAL: Normal gait, no focal deficits PSYCHIATRIC: Alert and oriented to person, place and time but slightly forgetful about certain details HERNIA: No palpable hernia on examination; no tenderness on examination ASSESSMENT: ICD-9-CM ICD-10-CM 1. Inguinodynia, right 789.03 R10.31 2. Urinary frequency 788.41 R35.0 PSA, TOTAL (INITIAL SCREEN) URINALYSIS (LAB) WITH REFLEX CULTURE REFER TO UROLOGY PSA, TOTAL (INITIAL SCREEN) URINALYSIS (LAB) WITH REFLEX CULTURE 3. Encounter for screening for malignant neoplasm of prostate V76.44 Z12.5 PSA , TOTAL (INITIAL SCREEN) REFER TO UROLOGY PSA, TOTAL (INITIAL SCREEN) 4. Generalized abdominal pain 789.07 R10.84 US ABDOMEN LIMITED PLAN: Will send for ultrasound, check urinalysis, PSA and refer to urology. Romero Silva MD 10/16/2019 12:59 documented in this encounter Plan of Treatment Date Type Specialty Care Team Description 10/27/2019 Ancillary Procedure Radiology 12/29/2019 Office Visit Urology Mariah Lima MD [address] [address] [phone] Name Type Priority Associated Diagnoses Date/Time PSA, TOTAL (INITIAL Lab Routine Encounter for screening 10/16/2019 10:45 AM EST SCREEN) for malignant neoplasm of prostate Urinary frequency URINALYSIS (LAB) WITH Lab Routine Urinary frequency 10/16/2019 10:46 AM EST REFLEX CULTURE Name Type Priority Associated Diagnoses Order Schedule PSA, TOTAL (INITIAL Lab Routine Encounter for screening Expected: 2018 SCREEN) for malignant neoplasm (Approximate), of prostate Expires: 10/16/2020 Urinary frequency URINALYSIS (LAB) WITH Lab Routine Urinary frequency Expected: 10/16/2019 REFLEX CULTURE (Approximate), Expires: 04/13/2020 US ABDOMEN LIMITED Imaging Routine Generalized abdominal Expected: 2018, pain Expires: 10/15/2020 Name Type Priority Associated Diagnoses Order Schedule REFER TO UROLOGY Referral Routine Urinary frequency Expected: 10/16/2019, Encounter for screening Expires: 10/16/2020 for malignant neoplasm of prostate Health Maintenance Due Date Last Done Comments ZOSTER IMMUNIZATION SERIES (1 1995 of 2) PNEUMOCOCCAL 65+YRS (2 of 2 - 07/02/2015 07/02/2014 PCV13) MEDICARE ANNUAL WELLNESS VISIT 08/27/2018 08/27/2017, 07/02/2014 (Previously completed) LIPID DISORDER SCREENING 06/29/2019 06/29/2014 DEPRESSION SCREENING 01/15/2020 01/15/2019 FALL RISK ASSESSMENT 01/15/2020 01/15/2019, 01/15/2019 COLONOSCOPY SCREENING 02/29/2028 02/28/2018, 02/28/2018, 12/10/2007 (Previously completed) AAA SCREENING/SURVEILLANCE Completed 01/29/2017 HPV IMMUNIZATION SERIES Aged Out No longer eligible based on patient's age to complete this topic MENINGOCOCCAL VACCINE IMM Aged Out No longer eligible based on patient's age to complete this topic documented as of this encounter Implants Implanted Type Area Registry Nurse Device Shelf Model / Identifier Expiration Serial / Date Lot Mesh Pre-Shaped 1.8x4 - [id number] Right: [employer] YAW 09/28/2021 [id number] / Implanted: Qty: 1 on 06/05/2018 by Romero Silva MD at [facility] Inguinal / [id number] documented as of this encounter Results Not on filedocumented in this encounter Visit Diagnoses Diagnosis Inguinodynia, right - Primary Urinary frequency Encounter for screening for malignant neoplasm of prostate Special screening for malignant neoplasm of prostate Generalized abdominal pain Abdominal pain, generalized documented in this encounter Insurance Payer Benefit Plan / Subscriber ID Effective Dates Phone Address Type Group EXCELLUS MEDICARE EXCELLUS xxxxxxxxxxxx 2015-Present [employer] ADVANTAGE MEDICARE BLUE PPO [phone]) (Home) [facility] [phone] [place], [place] (Work) [id number] documented as of this encounter Advance Directives Type Date Recorded 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
--- OUTSIDE RECORDS SUMMARY | 2019-11-07 16:51 | XMS REPORT | Continuity of Care Document ---
:1945 External Reference #:[id number] Author Name Tip Morris M.D. Address [address] [place] [address] Care Team Providers Name Role Phone Ritchie Arshad MD - Internal Care Team Information Lens Shaper Grinder [phone] Medicine Problems Active Problems Provider Date Keratoconjunctivitis sicca (excluding Sjogren Tip Morris M.D. Onset: 09/2019 syndrome) Open-angle glaucoma - borderline Aung Milton, OD Onset: 01/23/2017 Benign neoplasm of eyelid including canthus Tip Morris M.D. Onset: 10/13 Incipient senile cataract Tip Morris M.D. Onset: 10/13/2015 Open-angle glaucoma - borderline Tip Morris M.D. Onset: 10/13/2015 Squamous blepharitis Tip Morris M.D. Onset: 10/13/2015 Keratoconjunctivitis sicca (excluding Sjogren Tip Morris M.D. Onset: 11/2015 syndrome) Social History Type Date Description Comments Sex Unknown ETOH Use Rarely consumes alcohol Tobacco Use Start: Unknown End: Unknown Patient is a former smoker Smoking Status Reviewed: 10/12/19 Patient is a former smoker Allergies, Adverse Reactions, Alerts Active Allergies Reaction Severity Comments Date Penicillin 10/13/2015 Midazolam 08/05/2018 Medications Active Medications SIG Qnty Indications Ordering Date Provider Restasis one drop twice 60units Aung Rose, 07/23/2019 0.05% per day both OD Emulsion eyes Restasis Multidose 1 drop right eye 16.5units H16.223 Tip Morris, twice a day M.D. 0.05% Emulsion Latanoprost 1 drops both 7.5units Tip Morris, 08/05/2018 0.005% eyes every night M.D. Solution Eliquis Unknown 5mg Tablets Fluticasone Vallecitos Two Sprays Unknown Propionate In Each Nostril 50mcg/Act Every Day Suspension Ipratropium [place] Vallecitos Into Each Unknown Nostril AT 0.06% Solution Bedtime And Up To Four Times A Day as Needed For Rhinitis Immunizations Description No Information Available Vital Signs Date Vital Result Comment 10/12/2019 1:37pm Intraocular Pressure Right Eye 10 mmHg Intraocular Pressure Left Eye 10 mmHg 01/08/2019 8:48am Intraocular Pressure Right Eye 9 mmHg Intraocular Pressure Left Eye 9 mmHg Results Description No Information Available Procedures Date Code Description Status 10/12/2019 88500 Fundus Photography W/Interpretation & Report Completed 10/12/2019 63527 Ophthalmoscopy Subsequent Completed 10/12/2019 10562 Eye Exam Est Comprehensive Completed 2019 03081 Oct, Optic Nerve Completed 2019 54090 Eye Exam Est Intermediate Completed Medical Devices Description No Information Available Encounters Description No Information Available Assessments Date Code Description Provider 10/12/2019 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 10/12/2019 H16.223 Keratoconjunctivitis sicca, not specified as Tip Morris M.D. Sjogren's, bila 10/12/2019 H25.13 Age-related nuclear cataract, bilateral Tip Morris M.D. 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 2019 H16.223 Keratoconjunctivitis sicca, not specified as Tip Morris M.D. Sjogren's, bila 2019 H25.13 Age-related nuclear cataract, bilateral Tip Morris M.D. Plan of Treatment 10/12/2019 - Tip Morris M.D.H40.1231 Low-tension glaucoma, bilateral, mild stageFollow up:3-4 mos VFH16.223 Keratoconjunctivitis sicca, not specified as Sjogren's, bilaH25.13 Age-related nuclear cataract, bilateral Functional Status Description No Information Available Mental Status Description No Information Available Referrals Description No Information Available
--- OUTSIDE RECORDS SUMMARY | 2019-11-07 16:51 | XMS REPORT | Summary of Care ---
:1945 Author Organization [facility] Address [address] [place] [address] Care Team Providers Name Role Phone Ritchie Arshad Primary Care Provider Julissa De La Torre Detailer Unavailable Reason for Visit Reason Comments Groin Pain Patient presents with c/o right groin area burning/pain. Right inguinal hernia repair with mesh 06/05/18. Pt also c/o constipation Encounter Details Date Type Department Care Team Description 09/21/2019 Office Visit [facility] General Surgery Romero Silva MD Inguinodynia, right [address] (Primary Dx) [place] [id number] [place] [address] Allergies Active Allergy Reactions Severity Noted Date Comments Carbocaine Other 12/14/2015 Passed out at Dentist after receiving med. Penicillins GI Reaction 06/16/2014 Midazolam Hcl Other 06/16/2014 Lowered bp for 4 days documented as of this encounter (statuses as of 09/22/2019) Medications Medication Sig Dispensed Refills Start Date End Date Status MAGNESIUM PO Take 250 mg by 0 Active mouth DAILY. latanoprost (XALATAN) PLACE ONE DROP 2 08/06/2018 Active 0.005 % Ophthalmic INTO BOTH EYES IN Solution THE EVENING RESTASIS MULTIDOSE PLACE ONE DROP 2 10/16/2018 Active 0.05 % Ophthalmic INTO THE RIGHT EYE Emulsion TWO TIMES A DAY FLUTICASONE FUROATE NA [place] in nose. 0 Active apixaban (ELIQUIS) 5 Take 1 Tab by 60 Tab 4 01/15/2019 Active MG Oral Tab mouth TWICE DAILY. Melatonin 3 MG Oral Take 3 mg by mouth 0 Active Tab DAILY. albuterol-ipratropium 3 mg by 0 Active (DUO-NEB) 0.5-2.5 (3) Inhalation-SVN MG/3ML Inhalation route EVERY Solution BEDTIME. documented as of this encounter (statuses as of 09/22/2019) Active Problems Problem Noted Date Right inguinal hernia 04/18/2018 Overview: Added automatically from request for surgery [id number] MIESHA on CPAP 01/25/2017 Paroxysmal atrial fibrillation 10/05/2015 Overview: [facility] emergency room September 2015 Echocardiogram left ventricular ejection fraction 55% 09/15 Displacement of intervertebral disc, site unspecified, without myelopathy documented as of this encounter (statuses as of 09/22/2019) Resolved Problems Problem Noted Date Resolved Date Rheumatoid arthritis(714.0) 06/16/2014 06/17/2014 documented as of this encounter (statuses as of 09/22/2019) Immunizations Name Administration Dates Next Due Influenza [...] Sign Reading Time Taken Comments Blood Pressure 112/62 09/21/2019 2:03 PM EDT Pulse 67 09/21/2019 2:03 PM EDT Temperature 36.8 09/21/2019 2:03 PM EDT C (98.3 F) Respiratory Rate - - Oxygen Saturation 97% 09/21/2019 2:03 PM EDT Inhaled Oxygen Concentration - - Weight 54.1 kg (119 lb 4.8 oz) 09/21/2019 2:03 PM EDT Height 167.6 cm (5' 6") 09/21/2019 2:03 PM EDT Body Mass Index 19.26 09/21/2019 2:03 PM EDT documented in this encounter Progress Notes Romero Silva MD - 09/21/2019 2:00 PM EDT Groin Pain Office Visit PATIENT: Syed Chandra : 1945 DATE OF SERVICE: 09/21/2019 SELF No address on file Ritchie Arshad Chief Complaint Patient presents with Groin Pain Patient presents with c/o right groin area burning/pain. Right inguinal hernia repair with mesh 06/05/18. Pt also c/o constipation HISTORY OF PRESENT ILLNESS: Patient presents to the office with a complaint of Right groin pain of2 months duration. He denies a bulge. 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 No pertinent family history. Outpatient Medications as of 09/21/2019 Medication Sig Dispense Refill apixaban (ELIQUIS) 5 MG Oral Tab Take 1 Tab by mouth TWICE DAILY. 60 Tab 4 FLUTICASONE FUROATE NA [place] in nose. latanoprost (XALATAN) 0.005 % Ophthalmic [...] Lowered bp for 4 days PHYSICAL EXAMINATION: BP 112/62 (BP Location: Right arm, Patient Position: Sitting) | Pulse 67 | Temp 98.3 F (36.8 C) (Tympanic) | Ht 5' 6" (1.676 m) | Wt 119 lb 4.8 oz (54.1 kg) | SpO2 97% | BMI 19.26 kg/m GENERAL: VS reviewed; no acute distress. [...] ICD-9-CM ICD-10-CM 1. Inguinodynia, right 789.03 R10.31 PLAN: Although this may be related to nerve entrapment or other post surgical chronic pain, the short duration and symptoms could also be from a musculoskeletal strain. Recommend NSAIDS and rest for one month F/u for reevaluation or sooner if pain worsens or notices a bulge. If pain persists, will proceed with imaging. Romero Silva MD 09/22/2019 10:45 documented in this encounter Plan of Treatment Date Type Specialty Care Team Description 10/16/2019 Office Visit General Surgery Romero Silva MD [address] [place] [address] Health Maintenance Due Date Last Done Comments [...] of this encounter Implants Implanted Type Area Handicapped Teacher Device Shelf Model / Identifier Expiration Serial / Date Lot Mesh Pre-Shaped 1.8x4 - [id number] Right: INC. YAW 09/28/2021 [id number] / Implanted: Qty: 1 on 06/05/2018 by Romero Silva MD at [facility] Inguinal / [id number] documented as of this encounter Results Not on filedocumented in this encounter Visit Diagnoses Diagnosis Inguinodynia, right - Primary documented in this encounter Insurance Payer Benefit Plan / Subscriber ID Effective Dates Phone Address Type Group [facility] MEDICARE EXCELLUS xxxxxxxxxxxx 2015-Present [facility] ADVANTAGE MEDICARE BLUE PPO ([phone]) Guarantor Name Account Type Relation to Date of Phone Billing Patient Address Syed Chandra Personal/Family 1945 [address] [phone] [place], [place] (Work) [address] documented as of this encounter Advance Directives Type Date Recorded Patient Concrete Float Maker Explanation Advance Directives 03/03/2018 11:28 AM
--- OUTSIDE RECORDS SUMMARY | 2019-11-07 16:51 | XMS REPORT | Continuity of Care Document ---
:1945 External Reference #:[id number] Author Name Meeta Jenkins, MIL, RN, MEDICAL MANAGEMENT SPECIALIST-BC (transmitted by agent of provider Leana Live) Address [address] [facility], [address] [place] [id number] Care Team Providers Name Role Phone Ritchie Arshad MD - Internal Care Team Information Wedding Designer [phone] Medicine Jayden Verma DO, FAC - Care Team Information Wedding Designer [phone] Cardiovascular Disease Problems Active Problems Provider Date Atrial fibrillation Jayden Verma DO FACC Onset: 08/30/2015 Obstructive sleep apnea syndrome Carolyne Braxton MD Onset: 11/03/2015 Note: Moderate. AHI 19.4, O2 darby 92% Insomnia Carolyne Braxton MD Onset: 09/20/2016 Social History Type Date Description Comments Sex Unknown Tobacco Use Start: Unknown End: Former Cigarette Smoker Pt denies smoking Unknown cigar, e-cigarettes, pipe, or using chewing tobacco. Smoking Status Reviewed: 09/18/19 Former Cigarette Smoker Pt denies smoking cigar, e-cigarettes, pipe, or using chewing tobacco. ETOH Use Occasionally consumes alcohol Recreational Drug Use Never Used Drugs Tobacco Use Start: Unknown End: Patient is a former during college : Unknown smoker smoked for 7-8yrs Exercise Type/Frequency Exercises regularly Allergies, Adverse Reactions, Alerts Active Allergies Reaction Severity Comments Date Mepivacaine syncope 08/29/2015 Versed hypotension 08/29/2015 Penicillin 08/29/2015 Trazodone nightmares 06/19/2017 Medications Active Medications SIG Qnty Indications Ordering Provider Date Atenolol 1/2 by mouth 45tabs I48.0 Jayden Verma, 12/18/2018 25mg Tablets every day DO FACC Magnesium Oxide 1 by mouth once 90caps E83.42 Jayden SDanilo Verma, 06/19/2017 400mg a day DO FACC Capsules Fluticasone 2 sprays each Unknown 02/06/2016 Propionate nostril daily as 50mcg/Act needed Suspension Ipratropium [place] instill 2 sprays Unknown 02/06/2016 in each nostril 0.03% Solution twice a day as needed Eliquis 1 tab twice a 180tabs Jayden SDanilo Verma, 01/10/2016 5mg Tablets day DO FACC Restasis Multidose Place One Drop Unknown Into The Right 0.05% Emulsion Eye Two Times A Day Latanoprost Place One Drop Unknown 0.005% Into Both Eyes Solution In The Evening Medications Administered in Office Medication SIG Qnty Indications Ordering Provider Date Technetium TC 99M Jayden Teresita Verma, DO FACC 11/02/2015 Tetrofosmin, Per Unit Dose Up To 40 Millicuries Injection Immunizations CPT Code Status Date Vaccine Lot # [id number] Given 12/09/2015 Fluvirin Im 3Yrs And Older Vital Signs Date Vital Result Comment 09/18/2019 11:33am Height 66 inches 5'6" Weight 118.00 lb Heart Rate 54 /min BP Systolic Sitting 108 mmHg Lue reg cuff BP Diastolic Sitting 76 mmHg Lue reg cuff O2 % BldC Oximetry 98 % On Ra BMI (Body Mass Index) 19.0 kg/m2 03/12/2019 2:21pm Height 66 inches 5'6" Weight 123.00 lb with shoes Heart Rate 56 /min BP Systolic Sitting 100 mmHg lue reg cuff BP Diastolic Sitting 54 mmHg lue reg cuff BP Systolic Standing 104 mmHg lue reg cuff BP Diastolic Standing 54 mmHg lue reg cuff Respiratory Rate 16 /min BMI (Body Mass Index) 19.9 kg/m2 Ejection Fraction 55-60% echo. 09/01/15 Results Description No Information Available Procedures Description No Information Available Medical Devices Description No Information Available Encounters Description No Information Available Assessments Date Code Description Provider 09/18/2019 G47.33 Obstructive sleep apnea (adult) Meeta Jenkins, MIL, RN, MEDICAL MANAGEMENT SPECIALIST-BC (pediatric) Plan of Treatment Future Appointment(s):09/19/2020 11:00 am - Meeta Jenkins DNP, RN, MEDICAL MANAGEMENT SPECIALIST- at [facility]01/11/2020 11:15 am - Elver Luna M.D. at [facility]09/18/2019 - Meeta Jenkins DNP, RN, MEDICAL MANAGEMENT SPECIALIST-BCG47.33 Obstructive sleep apnea (adult) (pediatric)Comments:Moderate. AHI 19.4, O2 [place] 92%On CPAP AHI 7.6/hourFollow up:1 yearRecommendations:Continue PAP device, Benefitting and compliant with treatment. Cleaning Wipe off mask daily (baby wipe-no scent, or warm water) Clean mask, tubing, filter, and water chamber weekly in mild no scent dish soap and water. Hang to dry. If you have any sleepiness while driving you MUST avoid operating a vehicle or machinery. If you have difficulty with your equipment, or need to replace your mask or hoses, please contact your homecare agency. A weight change of 20 pounds or more may have an effect onyour equipment; if you are experiencing problems please call for an appointment. If you have any further questions, please call the [facility] at [phone]. Functional Status Description No Information Available Mental Status Description No Information Available Referrals Description No Information Available
[2019-11-07 17:00] LABS: ABS Eosinophils 0.1 10^3/ul (0-0.6); ABS Lymphocytes 1.1 10^3/ul (1.0-4.8); ABS Monocytes 0.3 10^3/ul (0-0.8); ABS Neutrophils 4.3 10^3/ul (1.5-7.7); Eosinophil % 1.4 %; Hematocrit 38 % (42-52); Hemoglobin 12.8 g/dL (14.0-18.0); Lymphocyte % 18.3 %; Mean Corpuscular HGB Conc 34 g/dL (31-36); Mean Corpuscular Hemoglobin 34 pg (27-31); Mean Corpuscular Volume 99 fL (80-94); Mean Platelet Volume 7.9 fL (7.4-10.4); Platelet Count 188 10^3/uL (150-450); Red Blood Count 3.82 10^6 /uL (4.18-5.48); Red Cell Distribution Width 13 % (10-15); White Blood Count 5.9 10^3/uL (3.5-10.8)
[2019-11-07 17:06] LABS: INR 1.13 (0.82-1.09)
[2019-11-07 17:15] LABS: Albumin 3.9 g/dL (3.2-5.2); Albumin/Globulin Ratio 1.4 (1-3); BUN/Creatinine Ratio 37.7 (8-20); Calcium 8.7 mg/dL (8.6-10.3); EGFR African American 119.5 (>60); EGFR Non-African American 98.8 (>60); Globulin 2.7 g/dL (2-4); Potassium 3.8 mmol/L (3.5-5.0); Total Bilirubin 0.4 mg/dL (0.2-1.0); Total Protein 6.6 g/dL (6.4-8.9)
--- NOTE | 2019-11-07 21:09 | ED ---
Abdominal Pain/Male - HPI Summary HPI Summary: This patient is a 74 year old M presenting to [facility] accompanied by with a chief complaint of dull right groin pain since the afternoon of 11/07/19. Pt has not had similar symptoms before, and felt like he had a rock in his stomach. Pt had his normal diet today. Pt was fine before the pain, and was able to do physical activity. Patient reported nausea (around 1600), constipation, and fatigue. Patient denies V/D, fever, CP. The nausea and pain has mostly resolved, but pt still feels fatigue. Per triage, The patient rates the pain 4/10 in severity. Pt has PMHx of a fib, and bulging discs. Pt has surgery to remove loose piece of meniscus. Pt is allergic to several medications. Pt had a normal sonogram last week. - History of Current Complaint Chief Complaint: EDAbdPain Stated Complaint: CHEST PAIN PER PT Time Seen by Provider: 11/07/19 20:36 Hx Obtained From: Patient, Family/Senior Contract Specialist Onset/Duration: Sudden Onset, Resolved Timing: Lasting Hours Severity Initially: Moderate Severity Currently: Mild Pain Intensity: 4 Pain Scale Used: 0-10 Numeric Location: Groin Radiates: No Character: Dull Aggravating Factor(s): Nothing Alleviating Factor(s): Nothing Associated Signs And Symptoms: Positive: Constipation, Nausea. Negative: Fever , Vomiting, Diarrhea, Other - CP - Allergies/Home Medications Allergies/Adverse Reactions: Allergies Allergy/AdvReac Type Severity Reaction Status Date / Time mepivacaine [From Carbocaine] Allergy Unknown Verified 11/07/19 16:50 Reaction Details midazolam Allergy Hypotension Verified 11/07/19 16:50 Penicillins Allergy Unknown Verified 11/07/19 16:50 Reaction Details Home Medications: Home Medications Acetaminophen TAB* [Tylenol TAB*] 650 mg PO BID 11/07/19 [History Confirmed 06/19] Docusate CAP* [Colace Cap*] 100 mg PO BID 11/07/19 [History Confirmed 11/07/19] Latanoprost 0.005%* [Xalatan 0.005%*] 1 drop BOTH EYES DAILY 11/07/19 [History Confirmed 11/07/19] Magnesium Oxide [Magnesium] 250 mg PO DAILY 11/07/19 [History Confirmed 11/07/19 ] PMH/Surg Hx/FS Hx/Imm Hx Endocrine/Hematology History: Denies: Hx Diabetes, Hx Thyroid Disease Cardiovascular History: Reports: Hx Atrial Fibrillation Denies: Hx Hypertension, Other Cardiovascular Problems/Disorders Respiratory History: Denies: Hx Asthma, Hx Chronic Obstructive Pulmonary Disease (COPD) GI History: Reports: Other GI Disorders - IBS Denies: Hx Ulcer Musculoskeletal History: Reports: Hx Arthritis - Surgical History Surgery Procedure, Year, and Place: WISDOM TEETH REMOVAL, surgery to remove loose piece of meniscus. - Immunization History Date of Tetanus Vaccine: 2012 Date of Influenza Vaccine: None Infectious Disease History: No Infectious Disease History: Denies: Hx Hepatitis, Hx Human Immunodeficiency Virus (HIV), Traveled Outside the [place] in Last 30 Days - Family History Known Family History: Positive: Other - Sleep apnea - Social History Occupation: Retired Lives: With Family Alcohol Use: Rare Hx Substance Use: No Substance Use Type: Reports: None Hx Tobacco Use: No Smoking Status (MU): Former Smoker - Additional Comments History Additional Comments: Home Medications Medication Instructions Recorded Confirmed Type Apixaban* [Eliquis*] 2.5 mg PO BID 08/31/16 11/07/19 History Fluticasone NASAL SPRAY 50MCG* 2 spray BOTH NARES BEDTIME 08/31/16 11/07/19 History [Flonase NASAL SPRAY 50MCG*] Ipratropium Br (Nf)0.03% Nasal 0.06 % BOTH NARES BEDTIME PRN 08/31/16 11/07/19 History [Ipratropium Roberta] Acetaminophen TAB* [Tylenol TAB*] 650 mg PO BID 11/07/19 11/07/19 History Docusate CAP* [Colace Cap*] 100 mg PO BID 11/07/19 11/07/19 History Latanoprost 0.005%* [Xalatan 1 drop BOTH EYES DAILY 11/07/19 11/07/19 History 0.005%*] Magnesium Oxide [Magnesium] 250 mg PO DAILY 11/07/19 11/07/19 History Review of Systems Positive: Fatigue. Negative: Fever Negative: Chest Pain Positive: Abdominal Pain - lower abdomen/groin, Nausea, Other - Constipation. Negative: Vomiting, Diarrhea All Other Systems Reviewed And Are Negative: Yes Physical Exam - Summary Physical Exam Summary: General: Well-developed, Well-nourished male. No acute distress. HEENT: Normocephalic, Atraumatic. Eyes: Conjuctiva normal, PERRL. Oropharynx: Clear, mucous membranes moist, (-) exudates. Neck: Soft, FROM, (-) lymphadenopathy, (-) thyromegaly, (-) JVD. Cardiovascular: Normal sinus rhythm, (-) murmur. Lungs: Clear to auscultation bilaterally (-) wheezes, (-) rales, (-) rhonchi. Abdomen: Soft, non-tender, non-distended, (-) organomegaly, normal bowel sounds. Back: (-) CVA tenderness Extremities: No edema. Skin: Warm, dry, (-) rash. Neuro: Alert and oriented x3, no focal deficits. Psychiatric: Mood normal, affect normal. Triage Information Reviewed: Yes Vital Signs On Initial Exam: Initial Vitals Temp Pulse Resp BP Pulse Ox 98.3 F 56 16 138/56 100 11/07/19 16:48 11/07/19 16:48 11/07/19 16:48 11/07/19 16:48 11/07/19 16:48 Vital Signs Reviewed: Yes Procedures - Sedation Patient Received Moderate/Deep Sedation with Procedure: No Diagnostics - Vital Signs Vital Signs Temp Pulse Resp BP Pulse Ox 11/07/19 18:50 98.1 F 49 16 111/67 99 11/07/19 16:48 98.3 F 56 16 138/56 100 - Laboratory Lab Results: Lab Results 11/07/19 11/07/19 11/07/19 Range/Units 16:51 16:51 16:51 WBC 5.9 (3.5-10.8) 10^3/uL RBC 3.82 L (4.18-5.48) 10^6 /uL Hgb 12.8 L (14.0-18.0) g/dL Hct 38 L (42-52) % MCV 99 H (80-94) fL MCH 34 H (27-31) pg MCHC 34 (31-36) g/dL RDW 13 (10-15) % Plt Count 188 (150-450) 10^3/uL MPV 7.9 (7.4-10.4) fL Neut % (Auto) 73.9 % Lymph % (Auto) 18.3 % [place] % (Auto) 5.7 % Eos % (Auto) 1.4 % Baso % (Auto) 0.7 % Absolute Neuts (auto) 4.3 (1.5-7.7) 10^3/ul Absolute Lymphs (auto) 1.1 (1.0-4.8) 10^3/ul Absolute Monos (auto) 0.3 (0-0.8) 10^3/ul Absolute Eos (auto) 0.1 (0-0.6) 10^3/ul Absolute Basos (auto) 0.0 (0-0.2) 10^3/ul Absolute Nucleated RBC 0.0 10^3/ul Nucleated RBC % 0.0 INR (Anticoag Therapy) 1.13 H (0.82-1.09) Sodium 138 (135-145) mmol/L Potassium 3.8 (3.5-5.0) mmol/L Chloride 104 (101-111) mmol/L Carbon Dioxide 31 (22-32) mmol/L Anion Gap 3 (2-11) mmol/L BUN 29 H (6-24) mg/dL Creatinine 0.77 (0.67-1.17) mg/dL Est GFR ( Amer) 119.5 (>60) Est GFR (Non-Af Amer) 98.8 (>60) BUN/Creatinine Ratio 37.7 H (8-20) Glucose 98 (70-100) mg/dL Calcium 8.7 (8.6-10.3) mg/dL Total Bilirubin 0.40 (0.2-1.0) mg/dL AST 29 (13-39) U/L ALT 52 (7-52) U/L Alkaline Phosphatase 79 (34-104) U/L Troponin I 0.00 (<0.03) ng/mL Total Protein 6.6 (6.4-8.9) g/dL Albumin 3.9 (3.2-5.2) g/dL Globulin 2.7 (2-4) g/dL Albumin/Globulin Ratio 1.4 (1-3) 11/07/19 Range/Units 19:45 WBC (3.5-10.8) 10^3/uL RBC (4.18-5.48) 10^6 /uL Hgb (14.0-18.0) g/dL Hct (42-52) % MCV (80-94) fL MCH (27-31) pg MCHC (31-36) g/dL RDW (10-15) % Plt Count (150-450) 10^3/uL MPV (7.4-10.4) fL Neut % (Auto) % Lymph % (Auto) % [place] % (Auto) % Eos % (Auto) % Baso % (Auto) % Absolute Neuts (auto) (1.5-7.7) 10^3/ul Absolute Lymphs (auto) (1.0-4.8) 10^3/ul Absolute Monos (auto) (0-0.8) 10^3/ul Absolute Eos (auto) (0-0.6) 10^3/ul Absolute Basos (auto) (0-0.2) 10^3/ul Absolute Nucleated RBC 10^3/ul Nucleated RBC % INR (Anticoag Therapy) (0.82-1.09) Sodium (135-145) mmol/L Potassium (3.5-5.0) mmol/L Chloride (101-111) mmol/L Carbon Dioxide (22-32) mmol/L Anion Gap (2-11) mmol/L BUN (6-24) mg/dL Creatinine (0.67-1.17) mg/dL Est GFR ( Amer) (>60) Est GFR (Non-Af Amer) (>60) BUN/Creatinine Ratio (8-20) Glucose (70-100) mg/dL Calcium (8.6-10.3) mg/dL Total Bilirubin (0.2-1.0) mg/dL AST (13-39) U/L ALT (7-52) U/L Alkaline Phosphatase (34-104) U/L Troponin I 0.00 (<0.03) ng/mL Total Protein (6.4-8.9) g/dL Albumin (3.2-5.2) g/dL Globulin (2-4) g/dL Albumin/Globulin Ratio (1-3) Result Diagrams: 11/07/19 16:51 11/07/19 16:51 Lab Statement: Any lab studies that have been ordered have been reviewed, and results considered in the medical decision making process. Re-Evaluation - Re-Evaluation First Eval Re-Evaluation Time: 22:44 Comment: I have discussed results with the patient and symptoms are resolved. Discussed symptoms that warrant immediate return to ED Abdominal Pain Male Course/Dx - Course Course Of Treatment: 74 year old male presents with nausea and abdominal pressure. Patient is were concerned that this may be related to the heart because they read it somewhere. His symptoms are significantly better than they were earlier when this started. Exam is within normal limits. Workup shows no significant abnormality. Patient tolerated by mouth here. Discharged to home. Follow up PCP. Follow-up sooner for any worsening symptoms. - Diagnoses Provider Diagnoses: Abdominal pain, Nausea Discharge ED - Sign-Out/Discharge Documenting (check all that apply): Patient Departure - Discharge - Discharge Plan Condition: Stable Disposition: HOME Patient Education Materials: Abdominal Pain (ED) Referrals: Ritchie Arshad MD [Primary Care Provider] - 3 Days Additional Instructions: Please follow up with your primary care physician within three days. Please return to ED for any new or worsening symptoms. - Billing Disposition and Condition Condition: STABLE Disposition: Home - Attestation Statements Document Initiated by Newtonibe: Yes Documenting Scribe: Diamond Schaefer Provider For Whom Sona is Documenting (Include Credential): Dr. Karin Estrada MD Scribe Attestation: Diamond Orourke scribed for Dr. Karin Estrada MD on 11/07/19 at 2335. Scribe Documentation Reviewed: Yes Provider Attestation: The documentation as recorded by the Diamond cantu accurately reflects the service I personally performed and the decisions made by me, Dr. Karin Estrada MD Status of Scribe Document: Viewed
[2019-11-07 22:14] LABS: Urine Appearance Clear; Urine Bilirubin Negative (Negative); Urine Blood Negative (Negative); Urine Color Straw; Urine Glucose Negative (Negative); Urine Ketones Negative (Negative); Urine Nitrite Negative (Negative); Urine Protein Negative (Negative); Urine Specific Gravity 1.014 (1.010-1.030); Urine Urobilinogen Negative (Negative)
[2019-11-07 22:59] VITALS: BP 112/66
== END 2019-11-07 22:59 | disposition home or self-care (01) ==
LOC: ED 16:40
DX: R10.9 Unspecified abdominal pain (principal); R11.0 Nausea; I48.91 Unspecified atrial fibrillation; Z87.891 Personal history of nicotine dependence; Z79.01 Long term (current) use of anticoagulants; Z79.899 Other long term (current) drug therapy; Z88.4 Allergy status to anesthetic agent; Z88.0 Allergy status to penicillin; Z88.8 Allergy status to other drugs, medicaments and biological substances
CPT/HCPCS: 36415; 80053; 81003; 84484; 85025; 85610; 93005; 99283

== ENCOUNTER 2021-05-25 10:02 | Observation (INO) ==
[2021-05-25] MEDS ORDERED: NS 0.9% 1000 ml BAG 1,000 ML IV ONE (10:21)
[2021-05-25 10:47] LABS: ABS Eosinophils 0.1 10^3/ul (0-0.6); ABS Lymphocytes 0.8 10^3/ul (1.0-4.8); ABS Monocytes 0.5 10^3/ul (0-0.8); ABS Neutrophils 4.2 10^3/ul (1.5-7.7); Eosinophil % 1.4 %; Hematocrit 38 % (42-52); Hemoglobin 12.9 g/dL (14.0-18.0); Lymphocyte % 14.7 %; Mean Corpuscular HGB Conc 34 g/dL (31-36); Mean Corpuscular Hemoglobin 34 pg (27-31); Mean Corpuscular Volume 100 fL (80-94); Mean Platelet Volume 8.5 fL (7.4-10.4); Platelet Count 162 10^3/uL (150-450); Red Blood Count 3.75 10^6 /uL (4.18-5.48); Red Cell Distribution Width 13 % (10-15); White Blood Count 5.5 10^3/uL (3.5-10.8)
[2021-05-25 11:18] LABS: INR 1.37 (0.82-1.09)
[2021-05-25 11:27] LABS: Albumin 3.9 g/dL (3.2-5.2); Calcium 8.9 mg/dL (8.6-10.3); Potassium 3.8 mmol/L (3.5-5.0); Total Bilirubin 0.5 mg/dL (0.2-1.0)
[2021-05-25 11:33] LABS: Albumin/Globulin Ratio 1.3 (1-3); EGFR African American 124.8 (>60); EGFR Non-African American 103.1 (>60); Globulin 2.9 g/dL (2-4); Total Protein 6.8 g/dL (6.4-8.9)
[2021-05-25] MEDS ORDERED: Ondansetron 4 mg VIAL 2 MG/ML 2 ml VIAL IV PRN (12:57)
[2021-05-25] MEDS ORDERED: Magnesium Hydroxide LIQ 30 ML UDC PO PRN (12:57)
[2021-05-26 05:39] LABS: HDL Cholesterol 69.4 mg/dL
[2021-05-26] MEDS ORDERED: Regadenoson 0.4 MG/5 ML SYRINGE ONE (09:08)
[2021-05-26] MEDS ORDERED: Aminophylline 25 MG/ML VIAL ONE (09:08)
[2021-05-26 09:35] LABS: C Reactive Protein 19.07 mg/L (<8.01)
[2021-05-26 11:59] VITALS: BP 125/69
== END 2021-05-26 15:30 | disposition home or self-care (01) ==
LOC: ED 10:02 → MEDTELE 10:02
PROVIDERS: ADMIT Hospitalist; ATTEND Internal Medicine